=== PATIENT | female | born 1955 | race African-American/Black ===

== ENCOUNTER 2024-07-07 06:39 | Emergency (ER) | payer MEDICAID, MEDICARE, OTHER ==
[~2024-07-07] VITALS: Ht 170.2 cm; Wt 45.0 kg
[2024-07-07 06:57] VITALS: BP 166/96; PULSE 88; RESP 18; TEMP 36.7; O2SAT 100
[2024-07-07 10:20] VITALS: TEMP 98
[2024-07-07] MEDS: ACETAMINOPHEN 325MG TABLET PO NR (10:20)
[2024-07-07] MEDS ORDERED: ACET-2708 MT (10:24)
== END 2024-07-07 10:51 | disposition home or self-care (01) ==
LOC: ER 06:39
DX: S20.212A Contusion of left front wall of thorax, initial encounter (principal); X58.XXXA Exposure to other specified factors, initial encounter; Y93.89 Activity, other specified; Y92.89 Other specified places as the place of occurrence of the external cause; Y99.8 Other external cause status
CPT/HCPCS: 71100; 99284; A4606